=== PATIENT | female | born 1945 | race Hispanic/Latino ===

== ENCOUNTER 2023-02-07 07:57 | Outpatient (RCR) | payer MEDICARE | END 2023-02-28 | LOC: PT 07:57 | PROVIDERS: ATTEND Physician Assistant | DX: S82.191D Other fracture of upper end of right tibia, subsequent encounter for closed fracture with routine healing (principal); M62.81 Muscle weakness (generalized); R26.2 Difficulty in walking, not elsewhere classified; M25.561 Pain in right knee; M25.661 Stiffness of right knee, not elsewhere classified ==